=== PATIENT | male | born 1970 | race Caucasian/White ===

== ENCOUNTER 2018-10-23 07:27 | Emergency (ER) | payer MEDICAID, OTHER ==
[~2018-10-23] VITALS: Ht 185.4 cm; Wt 95.3 kg
[~2018-10-23 07:27] MED LIST: CITA-72 PO
[2018-10-23 07:38] VITALS: BP 137/91
--- NOTE | 2018-10-23 07:43 | NUR ---
PT AMBULATED TO ER BED 07
--- NOTE | 2018-10-23 07:53 | NUR ---
PT BIB SELF TO THE ED WITH THE CHIEF C/O LEFT FOOT PAIN X 3 DAYS. PT WAS SEEN BY DOCTOR IN ARROW HEAD YESTERDAY FOR SAME REASON. NO TAKINBG ANY PAIN MEDS CURRENTLY. COMPLAINS OF BURNING PAIN 8/10 AT THIS TIME. +REDNESS, +SENSATION, +CIRCULATION. AMBULATORY. DENIES ANY FEVER. DENIES ANY OTHER PROBLEM AT THIS TIME. HX OF SEIZUREM, DEPRESSION, ANXIETY, HTN. PT HAS NOT TAKEN HIS MEDS FOR 5 DAYS.
[2018-10-23] MEDS ORDERED: KETOROLAC 30 MG/ML VIAL IVP ONE (09:20)
[2018-10-23] MEDS ORDERED: levETIRAcetam 1,000 MG in NACL 0.9% 100 ML IV ONE (09:20)
[2018-10-23] MEDS ORDERED: CLINDAMYCIN 900 MG in DEXTROSE 5% 100 ML IV ONE (09:20)
[2018-10-23] MEDS ORDERED: NACL 0.9% 1,000 ML IV ONE (09:20)
[2018-10-23] MEDS ORDERED: CLINDAMYCIN 900 MG/6 ML VIAL IV ONE (09:38)
[2018-10-23] MEDS ORDERED: levETIRAcetam 100 MG/ML VIAL IV ONE (09:38)
[2018-10-23 09:59] LABS: BASOPHILS # (AUTO) 0.1 K/uL (0.00-0.22); BASOPHILS % (AUTO) 0.9 % (0.0-2.0); EOSINOPHILS # (AUTO) 0.3 K/uL (0-0.4); EOSINOPHILS % (AUTO) 2.6 % (0.0-4.0); HEMATOCRIT 40.6 % (36-52); HEMOGLOBIN 13.7 g/dL (12.0-18.0); LYMPHOCYTES # (AUTO) 1.5 K/uL (2.0-11.5); LYMPHOCYTES % (AUTO) 15.9 % (20.5-51.1); MEAN CORPUSCULAR HEMOGLOBIN 29 pg (27-31); MEAN CORPUSCULAR HGB CONC 34 g/dL (33-37); MEAN CORPUSCULAR VOLUME 86.3 fL (80-94); MONOCYTES # (AUTO) 0.8 K/uL (0.8-1.0); MONOCYTES % (AUTO) 8.8 % (1.7-9.3); NEUTROPHILS # (AUTO) 6.9 K/uL (1.8-7.7); NEUTROPHILS % (AUTO) 71.8 % (42.2-75.2); PLATELET COUNT (AUTO) 284 K/uL (140-450); RED BLOOD CELL COUNT(AUTO) 4.71 MIL/uL (4.20-6.10); RED CELL DISTRIBUTION WIDTH 14.1 % (11.6-13.7); WHITE BLOOD COUNT (AUTO) 9.6 K/uL (4.8-10.8)
[2018-10-23 10:07] LABS: ANION GAP 14.1 (8-16); CARBON DIOXIDE 25.2 mmol/L (21-32); POTASSIUM 3.3 mmol/L (3.5-5.1)
[2018-10-23 10:12] LABS: ALBUMIN 3.9 g/dL (3.4-5.0); TOTAL BILIRUBIN 0.4 mg/dL (0.0-1.0)
--- NOTE | 2018-10-23 10:46 | NUR ---
BILATRERAL ORTHO SHOES APPLIED TO FEET
--- NOTE | 2018-10-23 12:02 | NUR ---
Patient discharged with v/s stable. Written and verbal after care instructions given and explained. Patient alert, oriented and verbalized understanding of instructions. Ambulatory with steady gait. All questions addressed prior to discharge. ID band removed. Patient advised to follow up with PMD. Rx of MOTRIN, KEPPRA, BACTRIM AND HYDROCHLOROTHIAZINE given. Patient educated on indication of medication including possible reaction and side effects. Opportunity to ask questions provided and answered.
[2018-10-23 12:03] VITALS: BP 120/81
== END 2018-10-23 12:02 | disposition home or self-care (01) ==
LOC: MED 07:27
DX: L03.115 Cellulitis of right lower limb (principal); L03.116 Cellulitis of left lower limb; I10 Essential (primary) hypertension; F41.9 Anxiety disorder, unspecified; G40.909 Epilepsy, unspecified, not intractable, without status epilepticus; Z88.0 Allergy status to penicillin; Z79.899 Other long term (current) drug therapy
CPT/HCPCS: 36415; 80053; 85025; 87040; 96365; 96366; 96368; 96375; 99283; J1885; J1953; J3490; J7030; J7060